=== PATIENT | female | born 1990 | race Caucasian/White ===

== ENCOUNTER 2016-06-19 14:37 | Inpatient (IN) | payer OTHER ==
--- NOTE | ~2016-06-19 | PN ---
Unit #: [id number] #: [id number] Patient: [address]AL[address] L[address] [id number] [facility] [address] [place] [address] [id number] MR#: [id number] NAME: ITALO LANE ROOM: [facility] Age: 26 Sex: F Admission Date: 06/19/2016 : 1990 Attending Physician: Fish Hyman M.D. Admitting Physician: Fish Hyman M.D. Primary Care Physician: Generic Doctor Not In System [facility] PROGRESS NOTES DATE 06/20/[address] is a 26-year-old white female who was seen today and chart was reviewed and case was discussed with the staff. She has been anxious, withdrawn though has not shown any agitation or irritability and has been cooperative with treatment recommendations and she has been taking medications and has (1) depressive symptoms. MENTAL STATUS EXAMINATION Young white female who was casually dressed with fair personal hygiene, appears to be in no acute distress or discomfort. She was awake and alert on interaction with intact orientation. Her mood was anxious and depressed with congruent affect. She denies any suicidal or homicidal ideations. Her insight and judgement remains slightly impaired. TREATMENT PLAN 1. We will continue her on her current medications and treatment protocol. We will monitor her response to the medication and make further adjustments as needed. 2. We will continue to follow up. Dictated by... Sara Cody/norma TD: 06/22/2016 01:08 JOB #: [id number] Unit #: [id number] #: [id number] Patient: ITALO LANE PROGRESS NOTES X Fish Hyman MD X PROGRESS NOTE
--- NOTE | ~2016-06-19 | DS ---
Unit #: [id number] #: [id number] Patient: ITALO RODRIGUEZ [id number] [facility] [address] [place] [address] [id number] MR#: [id number] NAME: ITALO RODRIGUEZ ROOM: [facility] Age: 26 Sex: F Admission Date: 06/19/2016 : 1990 Discharge Date: 06/24/2016 Attending Physician: Fish Hyman M.D. Primary Care Physician: Generic Doctor Not In System DISCHARGE SUMMARY IDENTIFYING DATA Ms. Rodriguez is a 26-year-old single white female, who was self-referred to the hospital. DISCHARGE DIAGNOSES Psychiatric: Opioid dependence, moderate and acute withdrawals; benzodiazepine dependence, moderate; methamphetamine dependence, moderate. Medical: Asthma. Stressors: Moderate psychosocial stressors. HISTORY OF PRESENT ILLNESS Please see initial psychiatric evaluation for details. PAST PSYCHIATRIC HISTORY Please see initial psychiatric evaluation for details. PAST MEDICAL HISTORY Please see initial psychiatric evaluation for details. HOSPITAL COURSE The patient was admitted to the adult chemical dependency unit at [facility] and was oriented to the hospital environment. Routine p.r.n. medications were initiated and she was started back on her home medications and detox protocol was initiated and she was closely monitored. She was taking the medications regularly and was tolerating them fairly well and was able to show a fairly decent and therapeutic response and was able to come out of the detox without complications and as such, it was decided that she will be discharged home and will continue treatment on an outpatient basis. DISCHARGE MEDICATIONS None. DISCHARGE CONDITION Stable. PROGNOSIS Fair. Dictated by... Fish Hyman M.D. IAA/modl Unit #: [id number] #: [id number] Patient: ITALO RODRIGUEZ TD: 07/29/2016 23:35 JOB #: [id number] DISCHARGE SUMMARY Page 1 of 1 X Fish Hyman MD X DISCHARGE SUMMARY
--- NOTE | ~2016-06-19 | CO ---
Unit #: [id number] #: [id number] Patient: [address] [id number] [place] [address] [id number] I MR#: [id number] NAME: EDILIA LANE ROOM: [facility] Age: 26 Sex: F Admission Date: 06/19/2016 : 1990 Attending Physician: Fish Hyman M.D. Primary Care Physician: Generic Doctor Not In System Consultation Date: 06/20/2016 CONSULTATION REPORT HISTORY OF PRESENT ILLNESS Edilia had a critical potassium result of 5.7. She denies any chest pain or palpitations. Her vital signs today, blood pressure is 101/66, heart rate 86, respirations 16, temperature 98.1. She is not having any shortness of breath and no complaints. PHYSICAL EXAMINATION CARDIAC: Regular rate and rhythm. No murmur, gallop, or rub. RESPIRATORY: Clear to auscultation bilaterally. ASSESSMENT AND PLAN Hyperkalemia. We will repeat BMP in the morning and obtain EKG today. We will recheck labs tomorrow and evaluate the need for treatment. Dictated by... Demetria Tobar A.P.R.N. for Sara Walls/krysten TD: 06/21/2016 00:43 JOB #: [id number] CONSULTATION REPORT X DEMETRIA COONEY APRN CONSULTATION REPORT
--- NOTE | ~2016-06-19 | PN ---
Unit #: [id number] #: [id number] Patient: [address] [id number] [facility] [address] [place] [address] [id number] MR#: [id number] NAME: ITALO LANE ROOM: [facility] Age: 26 Sex: F Admission Date: 06/19/2016 : 1990 Attending Physician: Fish Hyman M.D. Admitting Physician: Fish Hyman M.D. Primary Care Physician: Generic Doctor Not In System [facility] PROGRESS NOTES DATE OF SERVICE: 06/21/2016 SUBJECTIVE Ms. Lane is a 26-year-old white female, who was seen today and chart was reviewed and the case was discussed with the staff. She has been anxious and withdrawn, though has not shown any agitation or irritability and has been cooperative with the treatment recommendations and she has been taking the medications and tolerating them fairly well with no reported side effects. MENTAL STATUS EXAMINATION Young white female, who was casually dressed with fair personal hygiene, appears to be in no acute distress or discomfort. She was awake and alert on interaction with intact orientation. Her mood was anxious with a congruent affect. She denies any suicidal or homicidal ideations and also denies any auditory or visual hallucinations. Her insight and judgment remain slightly impaired. TREATMENT PLAN 1. We will continue her on her current medications and treatment protocol. We will monitor her response to the medications and make further adjustments as needed. 2. We will continue to follow up. Dictated by... Sara Cody/krysten TD: 06/21/2016 14:41 JOB #: [id number] [facility] PROGRESS NOTES X Fish Hyman MD PROGRESS NOTE
--- NOTE | ~2016-06-19 | EKG ---
PATIENT: ITALO LANE UNIT #: [id number] Ventricular Rate: 68 BPM Atrial Rate: 68 BPM P-R Interval: 132 ms QRS Duration: 76 ms Q-T Interval: 398 ms QTC Calculation(Bezet): 423 ms P [place]: 29 degrees Calculated R [place]: 47 degrees Calculated T [place]: 23 degrees Diagnosis Line: Normal sinus rhythm Diagnosis Line: Normal ECG Diagnosis Line: No previous ECGs available Diagnosis Line: Confirmed by ALEENA PEREA MD ([id number]) on Diagnosis Line: 06/22/2016 3:26:33 PM INTERPRETING MD: BRIT GODWIN
--- NOTE | ~2016-06-19 | PN ---
Unit #: [id number] #: [id number] Patient: [address] [id number] [facility] [address] [place] [address] [id number] MR#: [id number] NAME: ITALO LANE ROOM: [facility] Age: 26 Sex: F Admission Date: 06/19/2016 : 1990 Attending Physician: Fish Hyman M.D. Admitting Physician: Fish Hyman M.D. Primary Care Physician: Generic Doctor Not In System [facility] PROGRESS NOTES DATE 06/24/[address] Ms[address] Lane is a 26 year old white female who was seen today and chart were re-reviewed and case was discussed through the staff. She has been anxious, withdrawn and rather seclusive to herself. She has been cooperative with treatment recommendations. She has been taking medications and tolerating them fairly well. She denied any suicidal or homicidal and such we will monitor her on a current treatment protocol. We will monitor response and make further adjustments as needed. Dictated by... Sara Cody/norma TD: 06/24/2016 22:33 JOB #: [id number] [facility] PROGRESS NOTES X Fish Hyman MD PROGRESS NOTE
--- NOTE | ~2016-06-19 | HP ---
Unit #: [id number] #: [id number] Patient: [address]IL[address] [id number] [place] [address] [id number] I MR#: [id number] NAME: EDILIA LANE ROOM: [facility] Age: 26 Sex: F Admission Date: 06/19/2016 : 1990 Attending Physician: Fish Hyman M.D. Admitting Physician: Fish Hyman M.D. Primary Care Physician: Generic Doctor Not In System HISTORY AND PHYSICAL HISTORY OF PRESENT ILLNESS Edilia is a 26-year-old female admitted on 06/19/[address] [place] [address] for detox from meth, heroin and Xanax. PAST MEDICAL HISTORY 1. Asthma. 2. Poor dentition. PAST SURGICAL HISTORY 1. section x3. 2. Tonsil and adenoidectomy. 3. Bilateral ear tube placement. ALLERGIES Penicillin. SOCIAL HISTORY No tobacco or alcohol use. She does report use of meth, heroin and Xanax. She is currently single and homeless. FAMILY HISTORY Noncontributory. REVIEW OF SYSTEMS CONSTITUTIONAL: No fever or chills. HEENT: Denies any sore throat, ear pain or runny nose. CARDIOVASCULAR: Denies chest pain, irregular heart rhythm or palpitations. CHEST: Denies shortness of breath or cough. No hemoptysis. GASTROINTESTINAL: Denies nausea, vomiting, diarrhea or chronic constipation. ENDOCRINE: Denies history of increased thirst or urination. No recent significant weight loss or gain. GENITOURINARY: Denies dysuria, frequency, or hematuria. SKIN: Denies any rashes. HEMATOLOGIC: Denies history of increased bleeding or bruising. MUSCULOSKELETAL: Denies any hot, swollen joints. No generalized muscle pain. NEUROLOGIC: Denies problems with vision or speech. No frequent, severe headaches. No numbness, tingling or weakness in any extremities. Denies loss of bladder or bowel control. CURRENT MEDICATIONS 1. Zyrtec. Unit #: [id number] #: [id number] Patient: EDILIA LANE 2. Singulair. 3. Z-Maximo. 4. Ibuprofen. 5. Fluconazole. 6. Prilosec. 7. Flagyl. PHYSICAL EXAMINATION GENERAL: Alert, oriented, no acute distress. VITAL SIGNS: Blood pressure 133/87, heart rate 81, respirations 18, temperature 98.2. HEIGHT: 5 feet 2. WEIGHT: 130 pounds. SKIN: Warm and dry without rash or lesion. HEENT: Normocephalic. TMs not viewed. Oral and nasal passages clear. Conjunctivae clear. PERRLA. EOMs intact. NECK: Supple without lymphadenopathy or thyromegaly. HEART: Regular rate and rhythm without murmur. LUNGS: Clear. ABDOMEN: Soft, nontender, without masses or hepatosplenomegaly. : Not done. EXTREMITIES: No evidence of cyanosis, clubbing or edema. Moves all without focal deficit. NEUROLOGICAL: Grossly within normal limits. Cranial Nerves: II: Visual garcia are intact. III, IV AND : Extraocular movements are intact. Pupils are equal, round and reactive to light. V: Facial sensation is grossly normal. VII: Facial movements and expression are normal. VIII: Auditory acuity grossly intact. IX, X: Uvula is midline. Phonation is normal. XI: Patient shrugs shoulders and turns head normally. XII: Tongue protrudes in the midline. Sensory and Motor Function: Sensory and motor sensation is grossly normal. Motor: moves all extremities well. Coordination: Gait is normal. Deep Tendon Reflexes: Intact. IMPRESSION 1. Psychiatric admission. 2. Asthma. 3. Poor dentition. RECOMMENDATIONS PSYCHIATRIC: Per psychiatrist. MEDICAL: No contraindications to participate in facility's activities. MEDICAL PROGNOSIS Good. MEDICAL CONDITION Stable. Dictated by... Jose CampbellRBahman Unit #: [id number] #: [id number] Patient: EDILIA LANE JUVENCIO/alaina TD: 06/20/2016 18:31 JOB #: [id number] HISTORY AND PHYSICAL X BARB COONEY APRN X HISTORY AND PHYSICAL
--- NOTE | ~2016-06-19 | PN ---
Unit #: [id number] #: [id number] Patient: [address] [id number] [facility] [address] [place] [address] [id number] I MR#: [id number] NAME: ITALO LANE ROOM: [facility] Age: 26 Sex: F Admission Date: 06/19/2016 : 1990 Attending Physician: Fish Hyman M.D. Admitting Physician: Fish yHman M.D. Primary Care Physician: Generic Doctor Not In System [facility] PROGRESS NOTES DATE June 22, 2016 DISCUSSION Ms. Lane is a 26-year-old white female, who was seen today and chart was reviewed and the case was discussed with the staff. The patient has been anxious, withdrawn, and rather seclusive to herself and she reports some persistent depressive symptoms. Meanwhile, she has been taking the medications and tolerating them fairly well. MENTAL STATUS EXAMINATION Young white female, who was casually dressed with fair personal hygiene and appears to be in no acute distress or discomfort. She was awake and alert on interaction with intact orientation. Her mood was anxious with a congruent affect. The patient denies any suicidal or homicidal ideations. Her insight and judgment remain slightly impaired. TREATMENT PLAN We will continue her on her current treatment protocol, and will monitor her response, and make further adjustments as needed. Dictated by... Sara Cody/fabiola TD: 06/23/2016 09:53 JOB #: [id number] [facility] PROGRESS NOTES X Fish Hyman MD X PROGRESS NOTE
--- NOTE | ~2016-06-19 | CO ---
Unit #: [id number] #: [id number] Patient: [id number] [place] [address] [id number] MR#: [id number] NAME: EDILIA LANE ROOM: [facility] Age: 26 Sex: F Admission Date: 06/19/2016 : 1990 Attending Physician: Fish Hyman M.D. Primary Care Physician: Generic Doctor Not In System Requesting Physician: Fish Hyman M.D. Consultation Date: 06/21/2016 CONSULTATION REPORT HISTORY OF PRESENT ILLNESS Edilia had potassium of 5.7 on 06/20/2016 and EKG showed normal sinus rhythm. She had no complaints. Potassium is repeated this morning and was 4.9. She continues to deny chest pain or palpitations. No muscle cramps and no others complaints. PHYSICAL EXAM CARDIAC: Regular rate and rhythm. No murmur, gallop or rub. RESPIRATORY: Clear to auscultation bilaterally. ASSESSMENT PLAN Hyperkalemia. Hyperkalemia has resolved today. Her potassium level is 4.9. I see no reason to continue to check this level. Please notify if any chest pain or heart palpitations are present. Dictated by... Sondra Campbell TD: 06/21/2016 22:19 JOB #: [id number] CONSULTATION REPORT X BARB COONEY APRN X CONSULTATION REPORT
--- NOTE | ~2016-06-19 | PA ---
Unit #: [id number] #: [id number] Patient: [address] [id number] [facility] [address] [place] [address] [id number] I MR#: [id number] NAME: ITALO LANE ROOM: [facility] Age: 26 Sex: F Admission Date: 06/19/2016 : 1990 Date of Assessment: Attending Physician: Fish Hyman M.D. Admitting Physician: Fish Hyman M.D. Primary Care Physician: Generic Doctor Not In System PSYCHIATRIC ASSESSMENT DATE OF SERVICE 06/19/2016. IDENTIFYING DATA Ms. Lane is a 26-year-old single white female, who is a resident of [place], [place], and was self-referred to the hospital. CHIEF COMPLAINT "I'm very depressed and having thoughts of suicide, I come from [place]." HISTORY OF PRESENT ILLNESS Ms. Lane is a 26-year-old white female, who was self-referred to the hospital. Upon presentation, she stated that she is here for depression and thoughts of suicide "I have done it before by cutting 6 months ago." She reports that she has been overwhelmed with depression and anxiety "I feel like I could hurt myself if I don't seek help." She reports that she has a plan to cut herself again and she got out of the senior living on the 3rd and was on suicidal watch and she has been at the [facility] since then. She also reports that she has been getting alcohol and drug treatment there at the [place] [facility] and says she was using methamphetamine daily of 2 g a day with heroin and Xanax and reports she was in the senior living for stealing a candy bar and domestic violent charges. She is not on probation and CPS is not involved. Her three children are in the custody of the family. The patient stated that she cannot sleep and has been having increasing depression, anxiety, irritability, feelings of hopelessness and helplessness, and suicidal ideations. SUBSTANCE ABUSE HISTORY The patient reports history of opioids, methamphetamine, and benzodiazepine abuse, and she reports that she has been clean since 05/26/2016. PAST PSYCHIATRIC HISTORY The patient has had a history of chemical dependency treatment at [facility] in the past, and review of the medical records indicate that currently she is not active in any treatment program, is not seeing a psychiatrist, and is not taking any psychotropic medications. PAST MEDICAL HISTORY The patient's medical history is significant for asthma and gastroesophageal reflux disease. ALLERGIES Unit #: [id number] #: [id number] Patient: ITALO LANE. PERSONAL AND SOCIAL HISTORY A 26-year-old white female, who reports that she is single, unemployed, and homeless and has been living at [facility], but does not like it there and that she wants to go to some long-term rehabilitation level of care far away. MENTAL STATUS EXAMINATION Young white female, who was casually dressed with fair personal hygiene, appears to be in no acute distress or discomfort. She was awake and alert on interaction with intact orientation to time, place, and person. Her mood was anxious and depressed with a congruent affect. Her speech was slow and goal directed. She reports having suicidal ideation, but denies any homicidal ideations and also denies any auditory or visual hallucinations. Her insight and judgment remain significantly impaired. DIAGNOSTIC IMPRESSION Psychiatric: Major depressive disorder, recurrent, moderate, without psychotic features; opioid dependence, moderate; methamphetamine dependence, moderate; and benzodiazepine dependence, moderate. Medical: Asthma and gastroesophageal reflux disease. Stressors: Moderate psychosocial stressors. TREATMENT PLAN 1. The patient has presented with a history of substance abuse and mood disorder and has been decompensating and will need inpatient hospitalization for safety and stabilization. We will start her back on her home medications. We will adjust the medications to address depression and anxiety. 2. Supportive therapy was provided to the patient. ESTIMATED LENGTH OF STAY 5 to 7 days. ABILITY TO HELP SELF Limited. WILLINGNESS TO HELP SELF The patient appears to be willing to help self. STRENGTHS 1. Communicative. 2. Cooperative. PROBLEMS 1. Chronic dysphoric symptoms. 2. Chronic chemical dependency. 3. Poor social support system. DISCHARGE CRITERIA This will be contingent upon the patient's ability to show resolution of her depression and anxiety and her ability to stay safe to herself, particularly after discharge from the hospital. Dictated by... Unit #: [id number] #: [id number] Patient: ITALO LANE Sara Cody/krysten TD: 06/20/2016 12:27 JOB #: [id number] PSYCHIATRIC ASSESSMENT X Fish Hyman MD PSYCHIATRIC ASSESSMENT
[2016-06-20 11:33] LABS: BASOPHIL% 0.8 % (0-2.5); EOSINOPHIL# 0.1 X10e3 (0-0.7); EOSINOPHIL% 2.4 % (0.0-7.0); HEMATOCRIT 39.9 % (35.0-45.0); HEMOGLOBIN 13.2 gm/dL (12.0-16.0); LYMPHOCYTE# 2.3 X10e3 (1.0-3.5); LYMPHOCYTE% 36.9 % (17.0-45.0); MEAN CELL VOLUME 87.8 FL (83-96); MEAN CORPUSCULAR HEMOGLOBIN 29.1 PG (28-34); MEAN CORPUSCULAR HGB CONC 33.1 g/dL (30-36); MONOCYTE# 0.3 X10e3 (0-1.0); MONOCYTE% 5.3 % (3.0-12.0); NEUTROPHIL# 3.4 X10e3 (1.5-7.1); NEUTROPHIL% 54.6 % (40-75); PLATELET COUNT 189 X10e3 (140-420); RED BLOOD COUNT 4.55 X10e (3.90-5.30); RED CELL DISTRIBUTION WIDTH 13.6 % (11.0-15.5); WHITE BLOOD COUNT 6.2 X10e3 (4.0-10.5)
[2016-06-20 11:34] LABS: DIFF IND NO
[2016-06-20 11:37] LABS: URINE APPEARANCE TURBID; URINE BILIRUBIN NEG (NEG); URINE BLOOD 1+ (NEG); URINE COLOR YELLOW; URINE GLUCOSE NEG (NEG); URINE KETONE NEG (NEG); URINE LEUKOCYTE ESTERASE 2+ (NEG); URINE NITRATE NEG (NEG); URINE PROTEIN NEG (NEG); URINE SPECIFIC GRAVITY 1.028 (1.003-1.035); URINE UROBILINOGEN 0.2 MG/DL (NEG)
[2016-06-20 11:44] LABS: URINE BACTERIA AUWI NEG (NEGATIVE); URINE SQUAMOUS EPITHELIAL CELL FEW /[HPF]
[2016-06-20 11:58] LABS: AMPHETAMINE NEG (NEG); BARBITURATES NEG (NEG); BENZODIAZEPINES NEG (NEG); COCAINE NEG (NEG); MARIJUANA NEG (NEG); OPIATES NEG (NEG); TRICYCLIC ANTIDEPRESSANTS NEG (NEG); U METHADONE NEG (NEG)
[2016-06-20 12:09] LABS: THYROID STIMULATING HORMONE 2.02 uIU/ml (0.34-5.60)
[2016-06-20 12:15] LABS: ALBUMIN SERUM 4.5 g/dL (3.5-5.0); ALKALINE PHOSPHATASE 98 U/L (32-92); ALT (SGPT) 23 U/L (10-40); AST (SGOT) 19 U/L (10-42); BILIRUBIN,TOTAL 0.4 mg/dL (0.2-2.0); BLOOD UREA NITROGEN 15 mg/dL (9-23); BUN/CREATININE RATIO 18.75; CALCIUM SERUM 9.3 mg/dL (8.4-10.2); CARBON DIOXIDE 28 mmol/L (22-31); CHLORIDE 104 mmol/L (100-111); CREATININE SERUM 0.8 mg/dL (0.6-1.4); FREE THYROXIN (T4) 0.63 ng/dL (0.58-1.64); GLOM FILT RATE Estimated ABOVE60 mL/min (>60); GLUCOSE FASTING 89 mg/dL (70-110); PROTEIN TOTAL SERUM 7.1 g/dL (6.0-8.3); SODIUM 138 mmol/L (135-145)
[2016-06-20 12:20] LABS: POTASSIUM 5.7 mmol/L (3.5-5.1)
[2016-06-21 11:56] LABS: BLOOD UREA NITROGEN 18 mg/dL (9-23); CALCIUM SERUM 9.1 mg/dL (8.4-10.2); CARBON DIOXIDE 26 mmol/L (22-31); CHLORIDE 103 mmol/L (100-111); CREATININE SERUM 0.8 mg/dL (0.6-1.4); GLOM FILT RATE Estimated ABOVE60 mL/min (>60); GLUCOSE FASTING 81 mg/dL (70-110); POTASSIUM 4.9 mmol/L (3.5-5.1); SODIUM 136 mmol/L (135-145)
== END 2016-06-24 13:00 | disposition home or self-care (01) | DRG 885 ==
LOC: P2L 14:37 → POF 15:15 → P2L 15:23
PROVIDERS: Psychiatry & Neurology Psychiatry
PROC: HZ2ZZZZ Detoxification Services for Substance Abuse Treatment (ICD-10-PCS; principal; 2016-06-19)
DX: F33.1 Major depressive disorder, recurrent, moderate (principal); F13.20 Sedative, hypnotic or anxiolytic dependence, uncomplicated; F15.20 Other stimulant dependence, uncomplicated; F10.20 Alcohol dependence, uncomplicated; J45.909 Unspecified asthma, uncomplicated; K21.9 Gastro-esophageal reflux disease without esophagitis; F41.9 Anxiety disorder, unspecified; Z88.0 Allergy status to penicillin; Z59.0 Homelessness; E87.5 Hyperkalemia
CPT/HCPCS: 80048; 80053; 80307; 81003; 84439; 84443; 85025